=== PATIENT | male | born 1960 | race Asian ===

== ENCOUNTER 2022-08-07 09:09 | Outpatient (CLI) | payer BC ==
[2022-08-07] MEDS ORDERED: Iopamidol 300 61% 100 ML VIAL FS ONE (13:43)
== END 2022-08-07 09:10 | disposition home or self-care (01) ==
LOC: CSHCT 09:09
PROVIDERS: ATTEND Family Medicine
DX: R51.9 Headache, unspecified (principal); J32.9 Chronic sinusitis, unspecified
CPT/HCPCS: 70470; 82565; Q9967